=== PATIENT | female | born 1990 | race Caucasian/White ===

== ENCOUNTER 2024-01-29 10:54 | Outpatient (CLI) | payer BC, SELFPAY ==
--- NOTE | 2024-01-29 11:15 | CRLHL7_ITS ---
For Patients: As a result of the Century Cures Act, medical imaging exams and procedure reports are released immediately into your electronic medical record. You may view this report before your referring provider. If you have questions, please contact your health care provider. INDICATION: First trimester scan, establish dates. COMPARISON: None. TECHNIQUE: Real-time musa-scale imaging of the pelvis was performed. FINDINGS: Sonographic imaging demonstrates a single living intrauterine gestation. The embryo demonstrates a regular cardiac rate measuring 176 beats per minute. The embryo`s crown-rump length measurement of 2.5 cm corresponds to a gestational age of 9 weeks 1 day with a sonographic due date of 09/01/2024. There is a normal-appearing yolk sac. There are no gross abnormalities noted within the embryo at this early state of development. The gestational sac has a normal appearance. There is a 1.5 x 1.4 x 2.1 cm perigestational hemorrhage. The amount of fluid within the sac appears appropriate for gestational age. The cervix is closed. The myometrium appears normal. The ovaries are of normal size. Corpus luteal cyst right ovary. There are no suspicious fluid collections noted in the cul-de-sac. IMPRESSION: Single living intrauterine with sonographic gestational age 9 weeks 1 day and sonographic due date 09/01/2024. Anterior subchorionic hemorrhage measures 1.5 x 1.4 x 2.1 cm. Dictated by Alexander Berrios MD @ 01/29/2024 12:04:24 PM (Electronically Signed)
== END 2024-01-29 10:55 | disposition home or self-care (01) ==
LOC: US 10:55
PROVIDERS: Visit Provider Advanced Practice Midwife
DX: Z34.91 Encounter for supervision of normal pregnancy, unspecified, first trimester (principal); O20.9 Hemorrhage in early pregnancy, unspecified; Z3A.09 9 weeks gestation of pregnancy
CPT/HCPCS: 76817

== ENCOUNTER 2024-01-29 12:36 | Outpatient (CLI) | payer BC, SELFPAY | END 2024-01-29 12:37 | disposition home or self-care (01) | PROVIDERS: Visit Provider Advanced Practice Midwife | DX: Z34.91 Encounter for supervision of normal pregnancy, unspecified, first trimester (principal); Z3A.08 8 weeks gestation of pregnancy | CPT/HCPCS: 83021; 86592; 86703; 86704; 86706; 86762; 86787; 86803; 86850; 86900; 86901; 87086; 87340; 87491; 87591 ==

== ENCOUNTER 2024-02-28 13:16 | Outpatient (CLI) | payer BC, SELFPAY | END 2024-02-28 13:17 | disposition home or self-care (01) | LOC: NFLDREF 03-06 00:59 | PROVIDERS: Visit Provider Advanced Practice Midwife | DX: Z34.82 Encounter for supervision of other normal pregnancy, second trimester (principal) | CPT/HCPCS: 87491; 87591 ==

== ENCOUNTER 2024-04-24 09:03 | Outpatient (CLI) | payer BC, SELFPAY ==
--- NOTE | 2024-04-24 09:15 | CRLHL7_ITS ---
For Patients: As a result of the Century Cures Act, medical imaging exams and procedure reports are released immediately into your electronic medical record. You may view this report before your referring provider. If you have questions, please contact your health care provider. INDICATION: Evaluate anatomy. COMPARISON: 01/29/2024 TECHNIQUE: Real time musa scale imaging of the fetus was performed as well as color Doppler analysis of the umbilical vessels. FINDINGS: Sonographic imaging demonstrates a single living intrauterine gestation. Fetus demonstrates a regular cardiac rate of 135 beats per minute. Fetus has a vertex position. The placenta lies posteriorly without evidence of placenta previa. Placental edge 8.7 cm from the internal cervical os. Amniotic fluid volume appears normal. Single deepest vertical pocket: 3.4 cm. The cervix is closed and measures 4.4 cm in length. The composite ultrasound gestational age is calculated at 22 weeks 0 days with an estimated sonographic due date of 08/28/2024. The estimated weight is 449 grams which lies at the 78th %. The following biometric measurements were obtained: Biparietal diameter: 5.3 cm/22 weeks 1 day 84th% Head circumference: 19.1 cm/21 weeks 3 days 51st% Abdominal circumference: 17.5 cm/22 weeks 3 days 82nd% Femur length: 3.5 cm/21 weeks 0 days 36th% The HC/AC ratio measures: 1.09 range (1.06-1.23) On anatomic survey, there is a normal appearance of the cerebral ventricles, cavum septi pellucidi, cisterna magna and cerebellum. The nose, lips, and facial profile appear normal. The cervical, thoracic and lumbar spine are well visualized and appear normal. There is a normal four-chamber heart view and the left and right ventricular outflow tracts appear normal. The diaphragm and stomach appear normal. The kidneys and bladder also appear normal. There is a normal three-vessel cord and cord insertion site. The four extremities appear normal. Placental bonner is present measuring 3.3 x 2.1 x 3.1 cm. IMPRESSION: Sonographic gestational age 22 weeks 0 days and a sonographic due date of 08/28/2024. Sonographic age 6 days ahead of the clinical age. No intrinsic abnormalities noted on anatomic survey. Placental bonner is present measuring 3.3 x 2.1 x 3.1 cm. Dictated by Alexander Berrios MD @ 04/25/2024 1:54:50 PM (Electronically Signed)
== END 2024-04-24 09:04 | disposition home or self-care (01) ==
LOC: US 09:04
PROVIDERS: Visit Provider Midwife
DX: Z34.92 Encounter for supervision of normal pregnancy, unspecified, second trimester (principal); Z3A.22 22 weeks gestation of pregnancy
CPT/HCPCS: 76805

== ENCOUNTER 2024-06-17 09:36 | Outpatient (CLI) | payer BC, SELFPAY | END 2024-06-17 09:37 | disposition home or self-care (01) | LOC: NFLDREF 06-20 15:59 | PROVIDERS: Visit Provider Advanced Practice Midwife | DX: Z34.83 Encounter for supervision of other normal pregnancy, third trimester (principal) | CPT/HCPCS: 86592 ==

== ENCOUNTER 2024-07-29 10:02 | Outpatient (CLI) | payer BC, SELFPAY | END 2024-07-29 10:03 | disposition home or self-care (01) | LOC: NFLDREF 07-31 15:11 | PROVIDERS: Visit Provider Advanced Practice Midwife | DX: O99.013 Anemia complicating pregnancy, third trimester (principal); D64.9 Anemia, unspecified; Z3A.34 34 weeks gestation of pregnancy | CPT/HCPCS: 82728 ==

== ENCOUNTER 2024-08-07 08:59 | Outpatient (RCR) | payer BC, SELFPAY ==
--- NOTE | 2024-08-05 13:31 | ONC.NURNOTE ---
Diagnosis: iron deficiency anemia in
[2024-08-07 09:06] VITALS: BP 114/72; PULSE 73; TEMP 36.5; O2SAT 100
[2024-08-07] MEDS: SODIUM CHLORIDE 0.9 % (FLUSH) 10 ML SYRINGE IVF (09:40)
[2024-08-07] MEDS: IRON DEXTRAN COMPLEX 25 MG in 0.9 % SODIUM CHLORIDE 100 ml 100 ML 402 MG IVPB (09:41)
[2024-08-07 10:00] VITALS: BP 108/66; PULSE 66; RESP 16; TEMP 36.5; O2SAT 100
[2024-08-07] MEDS: IRON DEXTRAN COMPLEX 975 MG in 0.9 % SODIUM CHLORIDE 250 ml 250 ML 269.5 MG IVPB (10:32)
[2024-08-07 11:49] VITALS: BP 99/61; PULSE 65; RESP 16; TEMP 36.6; O2SAT 99
== END 2025-02-03 23:59 | disposition home or self-care (01) ==
LOC: CCIC 08:59
PROVIDERS: Visit Provider Clinical Nurse Specialist
DX: O99.013 Anemia complicating pregnancy, third trimester (principal); D50.9 Iron deficiency anemia, unspecified
CPT/HCPCS: 96365; 96366; 99211; J1750; J7050

== ENCOUNTER 2024-08-12 10:54 | Outpatient (CLI) | payer BC, SELFPAY | END 2024-08-12 10:55 | disposition home or self-care (01) | LOC: NFLDREF 08-13 23:05 | PROVIDERS: Visit Provider Advanced Practice Midwife | DX: Z34.83 Encounter for supervision of other normal pregnancy, third trimester (principal) | CPT/HCPCS: 87081; 87653 ==

== ENCOUNTER 2024-09-07 07:28 | Inpatient (IN) | payer BC, SELFPAY ==
[2024-09-07] VITALS (41 sets, daily range): BP systolic 100–140; BP diastolic 54–85; PULSE 51–121; RESP 16; TEMP 36.4–36.8; O2SAT 79–100; BMI 25.9
[2024-09-07 09:21] LABS: Hematocrit 33.4 % (33.0-51.0); Hemoglobin* 10.9 gm/dL (12.0-16.0); Immature Granulocytes Abs Auto 0.01 K/uL (0.00-0.30); Immature Granulocytes Pct Auto 0.1 %; Mean Corpuscular HGB Conc 33 gm/dL (32-36); Mean Corpuscular Hemoglobin 30 pg (26-34); Mean Corpuscular Volume 92 fL (80-100); RDW Coefficient of Variation % 17.2 % (11.5-15.5); Red Blood Count 3.62 m/uL (4.00-5.20); White Blood Count* 7.17 K/uL (4.50-11.00)
[2024-09-07 09:22] LABS: Lymphocytes Absolute Auto 1.20 K/uL (0.90-2.90); Slide Review Reflex No
--- NOTE | 2024-09-07 10:33 | W.PM.LDBA ---
Subjective History of Present Illness Date Seen: 09/07/24 Narrative: Patient is being admitted to Labor and Delivery for IOL for postdates.? She is a 33 year old at 40 Weeks, 4 Days gestation.?She is not feeling any ctx today. denies LOF, VB. endorses +FM. Specific Issues/Plans G5 P 3013 Partner: Terry Kids: Светлана 7, Yimi 5, Devyn is 2? H&P completed by Castillo Villagran CNM on 08/19/24? IOL scheduled electively for 09/07 # Hgb A1c 5.8. Declines nutrition referral. GCT 136 # anemia in 3rd trimester- oral iron start 06/17 IV infusion initiated 07/30; completed 08/07 Imagin04/24/24: Normal anatomy findings, posterior placenta, possible placental bonner seen. --Per Dr Chowdhury 04/27/24-Since she does not have risk factors for accreta, I do not think we need to follow this up with a level two ultrasound or another imaging study. COVID: initial series, boosted 3 times, 11/26/2023 Flu: 11/26/2023 TDAP: 07/01/24 RSV:N/A 32wk Mental Health: 34 wk HGB: GBS: negative OB - Problem Based A/P Additional Plan (1) Encounter for induction of labor: Status: Acute (2) Anemia: Status: Acute Plan ASSESSMENT:? 33 at 40.4 weeks gestation? complicated by:?anemia, postdates Labor type: Induced? Category 1 FHR pattern.?? Labor complicated by: none? GBS negative? ? PLAN:? 1. Routine intrapartum cares as ordered. Continue with expectant management? 2. Monitoring per policy 3. Planning unmedicated but also open to epidural. interested in potentially having a water . Consent signed. Hep C negative. Candidate for analgesia of choice.?? 4. Patient encouraged to reposition and ambulate to promote physiologic labor and .? 5. Anticipate ? 6. After disucssing IOL/ripening options and R/B/A, pt interested in starting with misoprosol. Delivery/Labor/Induction Plan Plan: induction Induction method: per misoprostol protocol OB Exam Physical Exam Vital signs: Temp Pulse BP Pulse Ox 97.6 F 59 L 135/85 99 09/07/24 07:50 07/07/25 09:07 09/07/24 09:07 09/07/24 09:07 Narrative: Vitals Reviewed Constitutional:? Alert and oriented x3 HEENT:? Normocephalic, atraumatic Neck:? Supple Lungs:? Clear to auscultation bilaterally Heart:? Regular rate and rhythm, no murmur, rub or gallop Abdomen:? Soft, nontender, and gravid. Vertex by Nic's, confirmed with cervical exam. Extremities:? No edema or erythema Cervix: 3 cm/60%/-3 station/vertex NST: 135 bpm/mod variability/+ accelerations/no decelerations/no contractions Detailed Labor and Delivery Exam Patient Gravid: yes
[2024-09-07] MEDS: LACTATED RINGERS 1000 ML 1,000 ML 125 ML IV (15:08)
[2024-09-07] MEDS: OXYTOCIN 30 unit/500 ML in NS 30 UNIT/500 ML BAG IVPB (15:25)
--- NOTE | 2024-09-07 15:57 | PM.OBPNL ---
Subjective Date Seen: 09/07/24 Narrative: Dina is here for IOL. she has had two doses of misoprostol 25 mcg each. since she was having a good amount of contractions, it was decided to start oxytocin protocol vs continuing misoprostol. She reports ctx are beginning to increase in intensity where she is starting to breath through them more. still fairly comfortable overall. discussed AROM if appropriate. r//b/a reviewed. pt open. Objective Vital Signs: Last Vital Signs Temp 98.1 F 09/07/24 13:22 Pulse 57 L 09/07/24 15:31 BP 134/78 09/07/24 15:31 Pulse Ox 99 09/07/24 15:29 Pelvic Exam Dilation (cm): 3.5 Effacement (%): 60 Station: -2 Comments: AROM with SVE: clear fluid, small amount Contractions Monitor mode: External Contraction Frequency: 1.5-2.5 Contraction pattern: Regular Contraction intensity: Moderate Pitocin Rate (mU/min): 3 Assessment Assessment: induction ongoing Station: -2 Amniotic Membrane Status: AROM Status: Category l Heart Rate Baseline: 135 Skilled Nursing Variability: Moderate (6-25) Monitor Accelerations: Present Monitor Decelerations: None Plan Plan: ASSESSMENT:? 33 y.o. at 40.4 weeks gestation? complicated by:?anemia Labor type: Induced; early labor Category 1 FHR pattern.?? Labor complicated by: none? GBS neg AROM: clear ? PLAN:? 1. Routine intrapartum cares as ordered. Continue with oxytocin management? 2. Monitoring per policy, continuous per oxytocin protocol 3. Planning unmedicated but open to epidural. also interested in water . Consent signed. Hep C negative. Candidate for analgesia of choice.?? 4. Patient encouraged to reposition and ambulate to promote physiologic labor and .? 5. Anticipate ?
[2024-09-07] MEDS: OXYTOCIN 30 unit/500 ML in NS 30 UNIT/500 ML BAG 300 UNIT IVPB (17:20)
--- NOTE | 2024-09-07 17:45 | W.PM.OBVAGDE ---
OB Procedure Vag Delivery Mother Details Mother Details: The patient is a 33 year-old, 5, now Para 4, admitted on 09/07/24 at 40.4 weeks gestation for IOL for postdates. Additional Details Amniotic Membrane Status: AROM Amniotic Membrane Rupture Date: 09/07/24 Amniotic Membrane Rupture Time: 15:33 Amniotic Membrane Fluid Description: Clear Analgesia/Anesthesia Type: None Waterbirth: Yes Pitcoin: Yes Intrapartal Events: Labor Induction Induction Method: per misoprostol protocol and per pitocin protocol Delivery augmentation: rupture of membranes Labor Onset: 15:55 Complete: 17:11 Pushin:11 Heart: heart tones during second stage were 145 with accel and decel present, remained reassuring throughout. Delivery Details Delivery Date: 09/07/24 Delivery Time: 17:19 Route of delivery: Gender: Female Infant Viability: Alive; Heart Rate Present Position at Delivery: OA Delivery Details: Patient was admitted for IOL and progressed wtih misoprostol 25 mcg x 2, oxytocin and augmentation. with AROM noted at 1533 with clear fluid. Patient entered the waterbirth tub for pain control shortly before feeling the urge to push. Patient was assumed complete with pushing at 1711. of a viable female at 1719 in hands and knees position in the tub. Vertex delivered OA. Nuchal cord appreciated and delivered via summersault. Body delivered easily and without incident, and cord was unwrapped around head. passed to mothers abdomen with a vigorous cry. Cord was clamped and cut at > 5 minutes. APGARS were 7 at one minute and 9 at five minutes respectively. Mouth was bulb suctioned. Intact placenta with a 3 vessel cord delivered spontaneously at 1733. Fundus firm. no laceration. QBL 50 EBL: 50 cc. Mother and baby stable; mother plans to breastfeed. weight pending. I,?Viridiana Ayala, CREDIT AND COLLECTIONS REPRESENTATIVE, CNM, was present for visit and have reviewed and agree with documentation. 1 Minute Interval Total Score: 7 5 Minute Interval Total Score: 9 Additional Details Shoulder Dystocia: No Placenta Delivery Time: 17:33 Placental Delivery Description: Spontaneous Procedure Done: Global Blood Loss: 100 Laceration: None Blood Loss Measurement Type: QBL (plus EBL in tub) Bakri Used: No Cord Vessel Description: 3 Vessels, Nuchal Cord, Loose and Delivered through Event Summary Status: Mother and were stable after delivery. Disposition: floor
[2024-09-07] MEDS: IBUPROFEN 600 MG TABLET PO ×2 (17:46→23:51)
[2024-09-07] MEDS: ACETAMINOPHEN 500 MG TABLET 1000 MG PO (20:49)
[2024-09-08 03:58] VITALS: BP 117/71; PULSE 56; RESP 16; TEMP 36.6; O2SAT 97
[2024-09-08] MEDS: ACETAMINOPHEN 500 MG TABLET 1000 MG PO ×3 (04:00→16:03)
[2024-09-08] MEDS: IBUPROFEN 600 MG TABLET PO ×2 (05:45→11:58)
--- NOTE | 2024-09-08 07:34 | P.DS_ITS ---
DS: Providers Provider Date Seen: 09/08/24 Date of admission: 09/07/24 07:28 Primary care physician: Not a Local Provider Admitting Clinician: Viridiana Ayala CNM Attending Physician on discharge: Joanne Villagran CNM Date of Discharge: 09/08/24 DS: Diagnosis Discharge Diagnosis (1) care and examination of lactating mother: Status: Acute Exam Narrative: Exam Narrative: VSS, afebrile GENERAL APPEARANCE: ?normal affect, alert, no distress MOOD: ?appropriate HEENT: normocephalic, neck supple, full ROM CHEST: ?Symmetrical chest wall movement. ?Normal respiratory effort. ?Clear to auscultation HEART: ?regular rate and rhythm ABDOMEN: ?soft, non-tender. Uterine fundus is firm, at Umbilicus, Midline and is appropriate for the stage of recovery. ?Bowel sounds present. PERINEUM: intact, normal serosa lochia observed EXTREMITIES: ?normal and no edema Const: Vital Signs, click to edit/add: Vital Signs - 24 hr 09/07/24 07:36 09/07/24 07:41 09/07/24 07:44 Temperature Pulse Rate 68 Pulse Rate [Pulse Oximeter] Respiratory Rate Blood Pressure 119/74 Blood Pressure [Le ft Arm] Pulse Oximetry 100 [facility] 07:50 09/07/24 09:07 09/07/24 11:17 Temperature 97.6 F Pulse Rate 59 L 57 L Pulse Rate [Pulse Oximeter] Respiratory Rate Blood Pressure 135/85 123/61 Blood Pressure [Le ft Arm] Pulse Oximetry 99 99 [facility] 09[facility]07/24 12:20 09/07/24 13:22 09/07/24 13:22 Temperature 98.1 F Pulse Rate 59 L Pulse Rate [Pulse Oximeter] Respiratory Rate Blood Pressure 111/75 Blood Pressure [Le ft Arm] Pulse Oximetry 99 99 [facility] 09[facility]07/24 15:29 09/07/24 15:31 09/07/24 16:05 Temperature 97.8 F Pulse Rate 57 L Pulse Rate [Pulse Oximeter] Respiratory Rate Blood Pressure 134/78 Blood Pressure [Le ft Arm] Pulse Oximetry 99 [facility] 09[facility] 16:06 09/07/24 16:07 09/07/24 16:51 Temperature 98 F Pulse Rate 62 Pulse Rate [Pulse Oximeter] Respiratory Rate Blood Pressure 101/61 Blood Pressure [Le ft Arm] Pulse Oximetry 100 [facility] 09[facility]/24 17:36 09/07/24 17:50 09/07/24 17:55 Temperature Pulse Rate 57 L 53 L Pulse Rate [Pulse Oximeter] Respiratory Rate Blood Pressure 116/65 100/54 L Blood Pressure [Le ft Arm] Pulse Oximetry 100 [facility] 09[facility] 18:00 09/07/24 18:00 09/07/24 18:02 Temperature 97.6 F Pulse Rate Pulse Rate [Pulse Oximeter] Respiratory Rate Blood Pressure Blood Pressure [Le ft Arm] Pulse Oximetry 91 99 [facility] 18:05 09/07/24 18:06 09/07/24 18:10 Temperature Pulse Rate 52 L Pulse Rate [Pulse Oximeter] Respiratory Rate Blood Pressure 113/60 Blood Pressure [Le ft Arm] Pulse Oximetry 100 92 100 [facility] 18:12 09/07/24 18:15 09/07/24 18:20 Temperature Pulse Rate Pulse Rate [Pulse Oximeter] Respiratory Rate Blood Pressure Blood Pressure [Le ft Arm] Pulse Oximetry 89 79 L 100 [facility] 18:21 09/07/24 18:25 09/07/24 18:30 Temperature Pulse Rate 57 L Pulse Rate [Pulse Oximeter] Respiratory Rate Blood Pressure 131/65 Blood Pressure [Le ft Arm] Pulse Oximetry 100 100 [facility] 18:35 09/07/24 18:40 09/07/24 18:45 Temperature Pulse Rate 55 L Pulse Rate [Pulse Oximeter] Respiratory Rate Blood Pressure 128/66 Blood Pressure [Le ft Arm] Pulse Oximetry 99 100 100 [facility] 18:50 09/07/24 18:55 09/07/24 19:00 Temperature Pulse Rate 65 Pulse Rate [Pulse Oximeter] Respiratory Rate Blood Pressure 140/69 H Blood Pressure [Le ft Arm] Pulse Oximetry 99 99 100 [facility] 09[facility] 19:05 09/07/24 19:05 09/07/24 19:10 Temperature 98.3 F Pulse Rate 58 L Pulse Rate [Pulse Oximeter] Respiratory Rate Blood Pressure 121/60 Blood Pressure [Le ft Arm] Pulse Oximetry 100 98 Oxygen Delivery [facility]od 09/07/24 19:15 09/07/24 19:20 09/07/24 19:22 Temperature Pulse Rate 56 L Pulse Rate [Pulse Oximeter] Respiratory Rate Blood Pressure 122/58 L Blood Pressure [Le ft Arm] Pulse Oximetry 98 98 Oxygen Delivery Me [facility]od 09/07/24 20:06 09/07/24 23:43 09/08/24 03:58 Temperature 97.8 F 97.7 F 97.9 F Pulse Rate Pulse Rate [Pulse Oximeter] 63 60 56 L Respiratory Rate 16 16 16 Blood Pressure Blood Pressure [Le ft Arm] 109/72 106/67 117/71 Pulse Oximetry 98 98 97 Oxygen Delivery Me thod Room Air Room Air Room Air Documenting provider has reviewed patient's vital signs: yes OB - DS: Summary Hospital Course Hospital Course: Dina is a 33 y.o. who was admitted to [facility] & [facility] for induction of labor. ?She had an uncomplicated NVD.?The patient feels well. ?The pain is well controlled with current medications. ?She has no new complaints. ?She is breast feeding and reports things are going well.? the patient has done well.? Vitals have been stable.? She has remained afebrile.? Has a good appetite, is tolerating a general diet. ?She is voiding without difficulty.? She is passing gas and has not had a bowel movement.? She is ambulating and denies any dizziness.? Has Small amount of rubra lochia. ?She is planning condoms for post prevention. She is requesting a 24 hour discharge this evening after testing is completed. Peripartum Data Infant delivery method: Vaginal Laceration description: None complications: none Gender: Female Discharge Plan: Home Status at Discharge Functional status at discharge: independent ambulation Overall status at discharge: patient is progressing back to baseline Time Spent with Patient Time attestation: Total time spent providing and/or coordinating discharge services: Time spent: Less than 30 minutes Discharge Plan Discharge Disposition: Home, Self-Care Date of Admission: 09/07/24 07:28 Attending Provider on Discharge: Joanne Villagran Primary Care Provider: Provider,Not a Local Condition: Stable Anticipated Discharge Date/Time: 09/08/24 20:00 Discharge Medications: New acetaminophen 500 mg Tablet 1,000 mg PO Q6H PRNQty: 0 0RF docusate sodium 100 mg Capsule 100 mg PO DAILY Qty: 90 0RF ibuprofen 600 mg Tablet 600 mg PO Q6H PRN (Reason: Pain) Qty: 60 0RF Continued Unisom (doxylamine) 25 mg tablet 25 mg PO QHS PRN One-A-Day -1 27 mg iron- 800 mcg-235 mg capsule 1 cap PO DAILY cholecalciferol (vitamin D3) 50 mcg (2,000 unit) capsule 50 mcg PO QDAY All Day Allergy (cetirizine) 10 mg capsule 10 mg PO DAILY PRN ferrous sulfate 134 mg (27 mg iron) tablet 134 mg PO DAILY Discharge Orders: Discharge Order (Routine); Ordered 09/08/24 Ordered By: Joanne Villagran Patient Education: OB Over the Counter Medication Information, OB Vaginal/Breast Feeding Activity Level: Activity as Tolerated Discharge Diet: Regular Follow Up Appointments: [facility] [Provider Group] Forms: [facility] Info Instructions
[2024-09-08 08:30] VITALS: BP 121/70; PULSE 52; RESP 12; TEMP 36.8; O2SAT 97
[2024-09-08] MEDS: DOCUSATE SODIUM 100 MG CAPSULE PO (09:55)
[2024-09-08 11:55] VITALS: BP 112/67; PULSE 55; RESP 16; TEMP 36.8; O2SAT 98
[2024-09-08 16:01] VITALS: BP 103/66; PULSE 58; RESP 12; TEMP 37; O2SAT 98
== END 2024-09-08 18:16 | disposition home or self-care (01) | DRG 560 ==
PROVIDERS: Admitting Provider Advanced Practice Midwife; Visit Provider Advanced Practice Midwife
DX: O48.0 Post-term pregnancy (principal); Z3A.40 40 weeks gestation of pregnancy; O99.02 Anemia complicating childbirth; D64.9 Anemia, unspecified; Z37.0 Single live birth
CPT/HCPCS: 36415; 59200; 85025; 86592; 86850; 86900; 86901; A9270; J7120